=== PATIENT | female | born 1940 | race African-American/Black ===

== ENCOUNTER 2016-07-01 09:11 | Emergency (ER) | payer OTHER ==
[~2016-07-01] VITALS: Ht 165.1 cm; Wt 81.7 kg
[~2016-07-01 09:11] MED LIST: DOXYCYCLINE 10100 MG PO; HIGH BLOOD PRESSURE; HTN; HYDROCHLOROTHIA25 M2 PO; IBUPROFEN 600600 M1 PO; METFORMIN HCL500 MG PO; NORFLEX100 MG PO
[2016-07-01] MEDS ORDERED: FLONASE 0.05%50 MCG NASAL (09:39)
[2016-07-01] MEDS ORDERED: CORICIDIN HBP1 EAC5 PO (09:39)
[2016-07-01] MEDS ORDERED: LISINOPRIL20 MG PO (09:42)
[2016-07-01] MEDS ORDERED: LIPITOR10 MG PO (09:42)
[2016-07-01] MEDS ORDERED: METFORMIN HCL1000 MG PO (09:42)
[2016-07-01] MEDS ORDERED: ZPAK PO (09:43)
[2016-07-01 09:59] VITALS: BP 191/104
== END 2016-07-01 09:59 | disposition home or self-care (01) ==
LOC: ER 09:11
DX: J02.0 Streptococcal pharyngitis (principal); H69.91 Unspecified Eustachian tube disorder, right ear; E11.9 Type 2 diabetes mellitus without complications; I10 Essential (primary) hypertension; Z90.710 Acquired absence of both cervix and uterus; Z90.89 Acquired absence of other organs